=== PATIENT | male | born 1950 | race Caucasian/White ===

== ENCOUNTER → 2016-07-07 | Outpatient (REF) ==
[2016-07-07 19:03] LABS: PHENOBARBITAL LEVEL 10.4 UG/ML (15.0-40.0)
== END ==
LOC: M LAB REF 09:38
DX: Z00.00 Encounter for general adult medical examination without abnormal findings (principal)

== ENCOUNTER → 2018-09-07 | Outpatient (REF) | payer MEDICARE, OTHER ==
[2018-09-07 18:00] LABS: PERCENT SATURATION 4.7 % (19.7-50.0)
== END ==
LOC: M LAB REF 17:12
PROVIDERS: ATTEND Internal Medicine Nephrology
DX: D50.9 Iron deficiency anemia, unspecified (principal); E11.22 Type 2 diabetes mellitus with diabetic chronic kidney disease

== ENCOUNTER → 2020-10-04 | Outpatient (REF) | payer MEDICARE, OTHER | LOC: M LAB REF 17:52 | PROVIDERS: ATTEND Nurse Practitioner Family | DX: E83.42 Hypomagnesemia (principal) ==

== ENCOUNTER → 2021-12-04 | Outpatient (CLI) | payer MEDICARE, OTHER | LOC: M RAD 07:49 | PROVIDERS: ATTEND Nurse Practitioner Family | DX: I12.9 Hypertensive chronic kidney disease with stage 1 through stage 4 chronic kidney disease, or unspecified chronic kidney disease (principal) ==

== ENCOUNTER → 2022-02-12 | Outpatient (REF) | payer MEDICARE, OTHER | LOC: M LAB REF 16:45 | PROVIDERS: ATTEND Physician Assistant | DX: N40.1 Benign prostatic hyperplasia with lower urinary tract symptoms (principal) ==

== ENCOUNTER → 2022-04-02 | Outpatient (REF) | payer MEDICARE, OTHER ==
[2022-04-03 07:06] LABS: CREATININE, URINE 33.2 MG/DL
[2022-04-03 07:22] LABS: MAU/CREAT RATIO 1424.6 MCG/MG (0.0-30.0)
== END ==
LOC: M LAB REF 16:52
PROVIDERS: ATTEND Nurse Practitioner Family
DX: E11.22 Type 2 diabetes mellitus with diabetic chronic kidney disease (principal)

== ENCOUNTER → 2023-04-07 | Outpatient (REF) | payer MEDICARE, OTHER ==
[2023-04-07 18:29] LABS: CREATININE,RANDOM URINE 104.5 MG/DL
[2023-04-07 18:30] LABS: TOTAL PROTEIN,RANDOM URINE 152.3 MG/DL (0.0-14.0)
== END ==
LOC: M LAB REF 17:19
PROVIDERS: ATTEND Nurse Practitioner Family
DX: N18.4 Chronic kidney disease, stage 4 (severe) (principal)